=== PATIENT | male | born 1945 | race Caucasian/White ===

== ENCOUNTER 2022-04-28 09:30 | Emergency (ER) | payer MEDICARE, OTHER, SELFPAY ==
[2022-04-28 09:50] VITALS: BP 132/74; PULSE 86; RESP 18; TEMP 37; O2SAT 95; BMI 29.5
--- NOTE | 2022-04-28 10:15 | ED.GENADULT ---
HPI - General Adult General Time Seen by Provider: 10:15 Date Seen: 04/28/22 Chief complaint: Lower Extremity Swelling Stated complaint: R foot swollen, aches Time Seen by Provider: 04/28/22 10:14 Source: patient and RN notes reviewed Mode of arrival: ambulatory Limitations: no limitations History of Present Illness HPI narrative: Patient is a 76-year-old male coming in with right foot pain and swelling. His believes of fever proceeded this on Wednesday night, he woke at 1:30 a.m. with the chills, he felt warm to her. He awoke in the morning with his right foot being painful and swollen. Denies any trauma but he had been out snow blowing a lot prior to that. He has no history of gout but is on hydrochlorothiazide with his lisinopril. He is on Coumadin for atrial fibrillation. Was on Xarelto and had to be switched to Coumadin about 5 years ago, did have a left leg DVT well on Xarelto. He does home monitoring for his Coumadin, checks his INR on Tuesdays, has not checked today. He states they been running in the low 2 range. Has had no prolonged travel. No other joints have been bothering him. Has been using Tylenol without pain relief. On questioning what he has tolerated in the past, his states he has taken oxycodone without any problems. Patient was unable to put his foot in his shoe today. Related Data Home Medications Medication Instructions Recorded Confirmed atenolol 25 mg tablet mg 04/28/22 atorvastatin 80 mg tablet mg 04/28/22 lisinopril 20 tab 04/28/22 mg-hydrochlorothiazide 25 mg tablet metformin 500 mg tablet,extended mg PO 04/28/22 release 24 hr warfarin 5 mg tablet mg 04/28/22 Previous Rx's Medication Instructions Recorded prednisone 20 mg tablet 20 mg PO BID #14 tabs 04/28/22 Allergies Allergy/AdvReac Type Severity Reaction Status Date / Time No Known Drug Allergies Allergy Verified 04/28/22 09:53 Review of Systems Status of ROS: Reports: 10 or more systems reviewed and unremarkable except as noted in History and below Exam Const: Vital Signs, click to edit/add: Vital Signs - 24 hr 04/28/22 09:50 Temperature 98.6 F Pulse Rate [Right Pulse Oximeter] 86 Respiratory Rate 18 Blood Pressure [Le ft Upper Arm] 132/74 Pulse Oximetry 95 Oxygen Delivery Me thod Room Air Documenting provider has reviewed patient's vital signs: yes Common normals: no apparent distress, average body habitus, oriented x3, no limitations, healthy appearing, alert and well nourished General appearance: cooperative, comfortable, well kempt and well developed HENMT: Common normals: normocephalic, head/scalp atraumatic and hearing grossly normal bilaterally Head and scalp: normocephalic and atraumatic Eye: Common normals: PERRL, EOMs intact bilaterally, conjunctivae normal and no scleral icterus Conjunctiva: conjunctiva(e) normal Pupil: PERRL Neck & C-Spine: Common normals: full ROM, no lymphadenopathy, supple, no meningeal signs, no JVD and thyroid normal Thyroid: thyroid normal Chest: Common normals: inspection of chest normal and palpation of chest normal Resp: Common normals: normal respiratory effort, no retractions, no use of accessory muscles and clear to auscultation bilaterally Auscultation: clear to auscultation bilaterally Cardio: Common normals: no JVD, regular rate, regular rhythm (Do not hear any significant irregularity of his heart at this time), S1 normal heart sound, S2 normal heart sound, no gallops, no clicks and no murmurs Rate: regular rate Rhythm: regular rhythm (Do not hear any significant irregularity of his heart at this time) Heart sounds: S1 normal and S2 normal GI: Common normals: Normal to inspection, nondistended, normoactive bowel sounds present, soft to palpation, non-tender, no hepatosplenomegaly and no masses Palpation: soft and no hepatosplenomegaly Extremity: Other: Significant midfoot swelling erythema and heat on the right side. He is tender and it seems to be emanating over the base of the right 1st metatarsal. Neurovascular seems to be intact. The whole dorsum of mid foot is swollen and erythematous. Neuro: Common normals: oriented x3 Sensorium/orientation: alert Meningeal signs: no meningeal signs Psych: Appearance: well kempt Course Course Hospital Course: Will obtain plain x-ray imaging, full complement of labs looking at such entities for infectious etiology, gout. Have reviewed with them that I doubt this is a DVT looking at the presentation and clinical examination. We will make sure his INR is therapeutic. Will initiate 5 mg oral oxycodone for pain management. Reevaluation(s) Reevaluation #1: Have reviewed with patient and his that his x-ray showing some arthritis changes in his midfoot but I do not feel that his current symptoms can be explained by his simple arthritis flare. He is quite profoundly afflicted. White count is normal, procalcitonin are not supporting in infectious etiology. His INR is therapeutic at 2.37 and I do not suspect that this is a breakthrough thromboembolic event. Reviewed that the sed rate is mildly up but the C reactive protein is certainly elevated, I do suspect an inflammatory process and currently do believe this is probably gout. We are awaiting his uric acid level. His glucose is elevated at 311. He states within the last week his hemoglobin A1c was just in the 7 range. His sugars may be elevated this morning because he is not taking his medicines as well as them being escalated from an acute medical issue. We certainly can see that with diabetes. It is likely he will go out on prednisone and need to follow up in the clinic. The hydrochlorothiazide may need to be taken out from his medication regimen. Time: 12:18 Vital Signs Vital signs: Initial Vital Signs Temperature 98.6 F 04/28/22 09:50 Temperature Source Temporal Artery Scan 04/28/22 09:50 Pulse Rate 86 04/28/22 09:50 Respiratory Rate 18 04/28/22 09:50 Blood Pressure 132/74 04/28/22 09:50 Blood Pressure Mean 93 04/28/22 09:50 Blood Pressure Position Standing 04/28/22 09:50 Pulse Oximetry 95 04/28/22 09:50 Oxygen Delivery Method 04/28/22 09:50 Vital Signs Temperature 98.6 F 04/28/22 09:50 Pulse Rate 86 04/28/22 09:50 Respiratory Rate 18 04/28/22 09:50 Blood Pressure 132/74 04/28/22 09:50 Pulse Oximetry 95 04/28/22 09:50 Oxygen Delivery Method 04/28/22 09:50 Temperature 98.6 F 04/28/22 09:50 Pulse Rate 86 04/28/22 09:50 Respiratory Rate 18 04/28/22 09:50 Blood Pressure 132/74 04/28/22 09:50 Pulse Oximetry 95 04/28/22 09:50 Oxygen Delivery Method 04/28/22 09:50 Medical Decision Making Lab Data Lab results reviewed: Yes I reviewed the patient's lab results Labs: Lab Results 04/28/22 04/28/22 04/28/22 Range/Units 10:37 10:37 10:37 WBC 9.67 (4.50-11.00) K/uL RBC 4.47 (4.30-5.90) m/uL Hgb 13.5 (13.5-17.5) gm/dL Hct 40.1 (37.0-53.0) % MCV 90 (80-100) fL MCH 30 (26-34) pg MCHC 34 (32-36) gm/dL RDW Coeff of Florian 14.3 (11.5-15.5) % Plt Count 136 L (140-440) K/uL Neut % (Auto) 87.7 H (42.0-72.0) % Lymph % (Auto) 6.1 L (20-44) % Cooper % (Auto) 5.8 (0.0-11.0) % Eos % (Auto) 0.1 (0.0-7.0) % Baso % (Auto) 0.2 (0.0-3.0) % Neut # (Auto) 8.50 H (1.7-7.0) K/uL Lymph # (Auto) 0.60 L (0.90-2.90) K/uL Cooper # (Auto) 0.60 (0.00-0.90) K/UL Eos # (Auto) 0.01 (0.00-0.50) K/uL Baso # (Auto) 0.02 (0.00-0.30) K/uL ESR 38 H (2-15) mm/hr INR (0.91-1.10) Sodium 136 (135-149) mmol/L Potassium 3.9 (3.6-5.1) mmol/L Chloride 102 (96-114) mmol/L Carbon Dioxide 30 (20-32) mmol/L BUN 19 (7-30) mg/dL Creatinine 0.9 (0.5-1.5) mg/dL Estimated Creat Clear 74.21 Estimated GFR 89 ml/min Glucose 311 H (60-115) mg/dL Uric Acid (2.2-8.4) mg/dL Calcium 8.7 (8.4-10.6) mg/dL C-Reactive Protein 18.8 H (0.5-1.0) mg/dL Procalcitonin 0.32 (<0.50) ng/mL 04/28/22 04/28/22 Range/Units 10:37 10:37 WBC (4.50-11.00) K/uL RBC (4.30-5.90) m/uL Hgb (13.5-17.5) gm/dL Hct (37.0-53.0) % MCV (80-100) fL MCH (26-34) pg MCHC (32-36) gm/dL RDW Coeff of Florian (11.5-15.5) % Plt Count (140-440) K/uL Neut % (Auto) (42.0-72.0) % Lymph % (Auto) (20-44) % Cooper % (Auto) (0.0-11.0) % Eos % (Auto) (0.0-7.0) % Baso % (Auto) (0.0-3.0) % Neut # (Auto) (1.7-7.0) K/uL Lymph # (Auto) (0.90-2.90) K/uL Cooper # (Auto) (0.00-0.90) K/UL Eos # (Auto) (0.00-0.50) K/uL Baso # (Auto) (0.00-0.30) K/uL ESR (2-15) mm/hr INR 2.37 H (0.91-1.10) Sodium (135-149) mmol/L Potassium (3.6-5.1) mmol/L Chloride (96-114) mmol/L Carbon Dioxide (20-32) mmol/L BUN (7-30) mg/dL Creatinine (0.5-1.5) mg/dL Estimated Creat Clear Estimated GFR ml/min Glucose (60-115) mg/dL Uric Acid 4.4 (2.2-8.4) mg/dL Calcium (8.4-10.6) mg/dL C-Reactive Protein (0.5-1.0) mg/dL Procalcitonin (<0.50) ng/mL Imaging Data X-ray right foot: Attestation: I have reviewed the pertinent imaging results. My impression: I see no acute fracture. Await Radiology over-read. Radiologist's impression: Patient: SERGO LEMUS Facility:?[facility] Patient ID:?[id number] Site Patient ID:?[id number]. Site :?[id number] Study:?XRay Extremity Right FOOT-04/28/2022 10:59:25 AM Ordering Physician:Kendra Mckenna Final Report: Indication: pain, swelling Technique: Right foot 3 views Comparison: None Findings: Joint space narrowing and spurring at the 1st tarsometatarsal joint with subchondral cystic change. Hallux valgus. Bipartite tibial sesamoid. Posterior calcaneal spur. Hammertoe deformities may be present. There is no acute fracture. No synovitis. 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 Mild hallux valgus and bunion. Posterior calcaneal spur. Dictated by Edy Cam MD @ 04/28/2022 11:11:54 AM (Electronic Signature) Discharge Plan Discharge Clinical Impression: Acute pain of right foot Patient Disposition: Home, Self-Care Condition: Stable Instructions: Low Purine Diet (ED), Gout (ED) Additional Instructions: Start prednisone, take as prescribed and take with food. Continue on Tylenol, 1000mg up to 4x/day. Need to follow up in clinic within the next week, may need to come off of the hydrochlorothiazide if this is gout. I do think that this is high likelihood of being gout. Review handouts, especially dietary recommendations. INR was 2.37 today. If you are worsening despite outlined treatments, develop fever over 100.5F, do need to seek re-evaluation. The prednisone is likely to increase your glucose/sugars temporarily. Activity Level: Activity as Tolerated Discharge Diet: Regular Prescriptions: New prednisone 20 mg tablet 20 mg PO BID Qty: 14 0RF No Action atorvastatin 80 mg tablet Label Comments: TAKE 1 TABLET BY MOUTH DAILY atenolol 25 mg tablet Label Comments: TAKE 1 TABLET BY MOUTH DAILY FOR ATRIAL FIBRILLATION warfarin 5 mg tablet lisinopril-hydrochlorothiazide 20-25 mg tablet Label Comments: TAKE 1 TABLET BY MOUTH DAILY metformin 500 mg tablet extended release 24 hr PO Label Comments: TAKE 2 TABLETS BY MOUTH DAILY WITH BREAKFAST Follow Up/Referrals: Provider,Not a Local [Primary Care Provider] - Stand Alone Forms: [employer] Info Instructions
--- NOTE | 2022-04-28 10:23 | CRLHL7_ITS ---
For Patients: As a result of the Century Cures Act, medical imaging exams and procedure reports are released immediately into your electronic medical record. You may view this report before your referring provider. If you have questions, please contact your health care provider. Indication: pain, swelling Technique: Right foot 3 views Comparison: None Findings: Joint space narrowing and spurring at the 1st tarsometatarsal joint with subchondral cystic change. Hallux valgus. Bipartite tibial sesamoid. Posterior calcaneal spur. Hammertoe deformities may be present. There is no acute fracture. No synovitis. 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 Mild hallux valgus and bunion. Posterior calcaneal spur. Dictated by Edy Cam MD @ 04/28/2022 11:11:54 AM (Electronically Signed)
[2022-04-28 10:45] LABS: Basophils Absolute Auto 0.02 K/uL (0.00-0.30); Basophils Percent Auto 0.2 % (0.0-3.0); Eosinophils Absolute Auto 0.01 K/uL (0.00-0.50); Eosinophils Percent Auto 0.1 % (0.0-7.0); Hematocrit 40.1 % (37.0-53.0); Hemoglobin* 13.5 gm/dL (13.5-17.5); Immature Granulocytes Abs Auto 0.01 K/uL (0.00-0.30); Immature Granulocytes Pct Auto 0.1 %; Lymphocytes Percent Auto 6.1 % (20-44); Mean Corpuscular HGB Conc 34 gm/dL (32-36); Mean Corpuscular Hemoglobin 30 pg (26-34); Mean Corpuscular Volume 90 fL (80-100); Monocytes Percent Auto 5.8 % (0.0-11.0); Neutrophils Percent Auto 87.7 % (42.0-72.0); Platelet Count* 136 K/uL (140-440); RDW Coefficient of Variation % 14.3 % (11.5-15.5); Red Blood Count 4.47 m/uL (4.30-5.90); White Blood Count* 9.67 K/uL (4.50-11.00)
[2022-04-28 10:57] LABS: Slide Review Reflex No
[2022-04-28 11:08] LABS: Chloride* 102 mmol/L (96-114); Sodium* 136 mmol/L (135-149)
[2022-04-28 11:11] LABS: Creatinine* 0.9 mg/dL (0.5-1.5); Est. Creatinine Clearance* 74.21; Estimated Glomerular Filt Rate 89 ml/min; Potassium* 3.9 mmol/L (3.6-5.1)
[2022-04-28 11:12] LABS: Blood Urea Nitrogen* 19 mg/dL (7-30); Calcium* 8.7 mg/dL (8.4-10.6); Carbon Dioxide* 30 mmol/L (20-32); Glucose* 311 mg/dL (60-115)
[2022-04-28 11:16] LABS: INR 2.37 (0.91-1.10); Prothrombin Time 27.1 Seconds
[2022-04-28 11:28] LABS: Procalcitonin* 0.32 ng/mL (<0.50)
[2022-04-28 11:42] LABS: C Reactive Protein* 18.8 mg/dL (0.5-1.0)
[2022-04-28 11:48] LABS: Erythrocyte SedimentationRate* 38 mm/hr (2-15)
[2022-04-28 12:17] LABS: Uric Acid* 4.4 mg/dL (2.2-8.4)
== END 2022-04-28 13:43 | disposition home or self-care (01) ==
PROVIDERS: Emergency Provider Family Medicine
DX: M79.671 Pain in right foot (principal)
CPT/HCPCS: 36415; 73630; 80048; 84145; 84550; 85025; 85610; 85651; 86140; 99283; 99284

== ENCOUNTER 2022-06-18 15:13 | Outpatient (RCR) | payer MEDICARE, OTHER, SELFPAY | END 2022-08-17 11:02 | disposition home or self-care (01) | PROVIDERS: PCP Internal Medicine Geriatric Medicine; Visit Provider Internal Medicine Geriatric Medicine | DX: R53.81 Other malaise (principal); M62.89 Other specified disorders of muscle; R26.89 Other abnormalities of gait and mobility; Z51.89 Encounter for other specified aftercare | CPT/HCPCS: 97110; 97162 ==